=== PATIENT | female | born 1975 ===

== ENCOUNTER → 2021-11-17 | Day surgery (SDC) | payer OTHER ==
[~2021-11-17] VITALS: Ht 154.9 cm; Wt 58.2 kg
[~2021-11-17] MED LIST: ACETAMINOPHEN500 M1 PO; AJOVY AUTO225 MG/1.5 SC; ASCORBIC ACID500 MG PO; BENADRYL25 MG PO; CLONAZEPAM 1MG T1 MG PO; CYCLOBENZAPRINE10 MG PO; EFFEXOR-XR 75 M75 MG PO; ELAVIL25 MG PO; FOLIC ACID1 MG PO; GABA; HYDROXYZINE HCL50 MG PO; LIPITOR40 MG PO; MAXALT10 MG PO; MELOXICAM; OMEGA 3 1,0001 EACH PO; PHENERGAN25 M1 PO; REGLAN5 MG PO; RETIN A TOP; UBRELVY100 MG PO; VENTOLIN HFA IN18 GM INH; VITAMIN D350 MC3 PO; VIVELLE-DOT1 EAC3 TOP; [UNRECOGNIZED DRUG - OTHER]
[2021-11-17 09:57] LABS: BASOPHIL 1.1 % (0-2); EOSINOPHIL 2.3 % (0-5); HCT 40.4 % (37.0-47.0); HGB 13.5 g/dl (12.5-16.0); LYMPHOCYTE 24.1 % (15-48); MCH 31.1 pg (25.0-31.0); MCHC 33.4 g/dL (32.0-36.0); MCV 93.1 fL (78.0-100.0); MONOCYTE 6.7 % (0-12); NEUTROPHIL 65.6 % (41-80); NRBC 0; PLT 266 K/uL (150-400); RBC 4.34 M/uL (4.20-5.40); RDW 13.8 % (11.5-14.0); WBC 6.6 K/uL (4.0-10.5)
== END | disposition home or self-care (01) ==
LOC: FAS 08:55
PROVIDERS: Oral & Maxillofacial Surgery
DX: K02.9 Dental caries, unspecified (principal); K04.7 Periapical abscess without sinus; K09.0 Developmental odontogenic cysts; J45.909 Unspecified asthma, uncomplicated; Z88.5 Allergy status to narcotic agent; Z88.8 Allergy status to other drugs, medicaments and biological substances
CPT/HCPCS: 41826; D7210; D7310; 36415; 71045; 85025; 93005; J1100; J1170; J1885; J2250; J2405; J2704; J3010; J7120